=== PATIENT | male | born 1980 | race Two or more races ===

== ENCOUNTER 2019-06-29 21:08 | Emergency (ER) | payer SELFPAY ==
[~2019-06-29] VITALS: Ht 182.9 cm; Wt 117.9 kg
[2019-06-29 21:30] VITALS: BP 169/106
[2019-06-29] MEDS ORDERED: TETRACAINE 0.5% OPHTH SOLUTION 4ML BOTTLE. ONE (21:31)
[2019-06-29] MEDS ORDERED: FLUORESCEIN OPHTH TEST STRIP. ONE (21:31)
[2019-06-29] MEDS: FLUORESCEIN OPHTH TEST STRIP. OD ONE (21:38)
[2019-06-29] MEDS: TETRACAINE 0.5% OPHTH SOLUTION 4ML BOTTLE. OD ONE (21:38)
[2019-06-29] MEDS ORDERED: KETO5DRO24 OD (21:53)
[2019-06-29] MEDS ORDERED: CIPR2.5D OD (21:53)
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
== END 2019-06-29 22:00 | disposition home or self-care (01) ==
LOC: ER 21:08
DX: H57.11 Ocular pain, right eye (principal); J45.909 Unspecified asthma, uncomplicated
CPT/HCPCS: 99283